=== PATIENT | female | born 1960 | race Hispanic/Latino ===

== ENCOUNTER 2016-11-13 13:48 | Emergency (ER) | payer OTHER ==
[2016-11-13] MEDS ORDERED: CATAPRES ONE (14:41)
[2016-11-13] MEDS ORDERED: CATAPRES PO ONE (14:46)
--- NOTE | 2016-11-13 15:18 | Cat Scan Report ---
CT HEAD WITHOUT CONTRAST: HISTORY: Head injury, hypertension. Serial contiguous axial images were obtained through the cranium. Intravenous contrast material was not administered. The ventricles are normal in size and appearance. There is no mass effect or midline shift. No areas of abnormally increased or decreased attenuation are seen. No mass lesion is seen. The mastoid air cells and visualized portions of the sinuses are normal. IMPRESSION: Cranial CT scan within normal limits.
--- NOTE | 2016-11-13 15:18 | XRay Report ---
LEFT HAND, 3 VIEWS: LEFT WRIST, 3 VIEWS: History: Swelling, pain after fall. There is diffuse soft tissue swelling. Borderline to mild osteopenia is evident. Subtle cortical irregularity is appreciated in the distal radial metaphysis which probably represents a nondisplaced fracture. Please correlate with the patient. The remaining bones in the left hand and wrist are intact. Minor degenerative changes. Impression: Probable nondisplaced distal radial fracture.
[2016-11-13] MEDS ORDERED: NORCO 5/325 PO ONE (16:17)
--- NOTE | 2016-11-13 19:07 | Emergency Department Report ---
ED Upper Extremity Inj HPI - General Chief Complaint: Extremity Injury, Upper Stated Complaint: HAND INJURY LT Time Seen by Provider: 11/13/16 18:46 Source: patient Mode of arrival: Ambulatory Limitations: No Limitations - History of Present Illness Complaint: Injury to:: left -: Gradual Other Extremity Injury: Wrist: Left Other Injuries: none Handedness: left Place: home Severity scale (0 -10): 5 Improves With: none Worsens With: movement of extremity Context: fall Associated Symptoms: denies other symptoms Treatments Prior to Arrival: other (none) - Related Data Home Medications Medication Instructions Recorded Confirmed Last Taken No Known Home Medications [No 11/13/16 11/13/16 Unknown Reported Home Medications] Allergies Allergy/AdvReac Type Severity Reaction Status Date / Time No Known Allergies Allergy Unverified 11/13/16 14:27 ED Review of Systems ROS: Stated complaint: HAND INJURY LT Other details as noted in HPI Comment: All other systems reviewed and negative Constitutional: no symptoms reported Musculoskeletal: joint swelling, arthralgia ED Past Medical Hx - Past Medical History Previous Medical History?: No - Surgical History Additional Surgical History: . TUBAL LIGATION - Social History Smoking Status: Former Smoker Substance Use Type: None - Medications Home Medications: Home Medications Medication Instructions Recorded Confirmed Last Taken Type No Known Home Medications [No 11/13/16 11/13/16 Unknown History Reported Home Medications] ED Physical Exam - General Limitations: No Limitations - Head Head exam: Present: atraumatic - Eye Eye exam: Present: normal appearance - ENT ENT exam: Present: normal exam - Neck Neck exam: Present: normal inspection - Respiratory Respiratory exam: Present: normal lung sounds bilaterally, respiratory distress - Cardiovascular Cardiovascular Exam: Present: regular rate, normal rhythm - GI/Abdominal GI/Abdominal exam: Present: soft, distended - Extremities Exam Extremities exam: Present: tenderness (left wrist) - Back Exam Back exam: Present: normal inspection - Neurological Exam Neurological exam: Present: alert, CN II-XII intact - Psychiatric Psychiatric exam: Present: normal affect - Skin Skin exam: Present: warm, dry ED Course Vital Signs 11/13/16 11/13/16 11/13/16 14:31 14:48 16:09 Temperature 98.7 F Pulse Rate 75 75 72 Respiratory 17 18 Rate Blood Pressure 222/114 222/114 Blood Pressure 202/108 [Right] O2 Sat by Pulse 100 100 Oximetry 11/13/16 11/13/16 16:22 16:58 Temperature Pulse Rate 72 Respiratory 17 Rate Blood Pressure Blood Pressure 190/102 [Right] O2 Sat by Pulse 100 Oximetry Critical care attestation.: If time is entered above; I have spent that time in minutes in the direct care of this critically ill patient, excluding procedure time. ED Disposition Clinical Impression: Left radial fracture Disposition: DC-01 TO HOME OR SELFCARE Is pt being admited?: No Does the pt Need Aspirin: No Condition: Stable Referrals: PRIMARY CAREMD [Primary Care Provider] - 3-5 Days RYAN WALDEN MD [Staff Physician] - 3-5 Days
[2016-11-13 20:38] VITALS: BP 158/93
== END 2016-11-13 20:25 | disposition home or self-care (01) ==
LOC: ED 13:48
DX: S52.592A Other fractures of lower end of left radius, initial encounter for closed fracture (principal); Z87.891 Personal history of nicotine dependence; W19.XXXA Unspecified fall, initial encounter; Y93.89 Activity, other specified; Y99.8 Other external cause status; Y92.009 Unspecified place in unspecified non-institutional (private) residence as the place of occurrence of the external cause
CPT/HCPCS: 70450

== ENCOUNTER 2020-05-04 12:32 | Emergency (ER) | payer OTHER ==
--- NOTE | 2020-05-04 13:20 | Event Note ---
ED Screening Note ED Screening Note: DIZZY FOR SEVERAL DAYS NO CP OR TIGHTNESS POS MILD COUGH SINUS PAIN AND PRESSURE RX NONE BUT DID TAKE HUSBANDS LISINOPRIL THIS AM NO HTN HAS NOT TAKEN BP PCP DORIE PSH NONE NO CIG/ETOH/DRUGS MOM HX CAD DAD DEC CAD This initial assessment/diagnostic orders/clinical plan/treatment(s) is/are subject to change based on patients health status, clinical progression and re- assessment by fellow clinical providers in the ED. Further treatment and workup at subsequent clinical providers discretion. Patient/guardian urged not to elope from the ED as their condition may be serious if not clinically assessed and managed. Initial orders include: RO ACS
--- NOTE | 2020-05-04 13:57 | XRay Report ---
CHEST 2 VIEWS INDICATION / CLINICAL INFORMATION: Lightheadedness/Dizziness. COMPARISON: None available. FINDINGS: SUPPORT DEVICES: None. HEART / MEDIASTINUM: No significant abnormality. LUNGS / PLEURA: No significant pulmonary or pleural abnormality. No pneumothorax. ADDITIONAL FINDINGS: No significant additional findings. IMPRESSION: 1. No acute findings. Signer Name: Deion Meyers MD Signed: 05/04/2020 1:53 PM Workstation Name: [id number]
[2020-05-04 14:07] LABS: Basophils % (Auto) 0.4 % (0.0-1.8); Eosinophils % (Auto) 0.1 % (0.0-4.3); Hematocrit 30.1 % (30.3-42.9); Hemoglobin 9.2 gm/dl (10.1-14.3); Lymphocytes # (Auto) 0.8 K/mm3 (1.2-5.4); Mean Corpuscular HGB Conc 31 % (30-34); Mean Corpuscular Volume 65 fl (79-97); Monocytes # (Auto) 0.3 K/mm3 (0.0-0.8); Monocytes % (Auto) 4.7 % (0.0-7.3); Platelet Count 308 K/mm3 (140-440); Red Blood Count 4.64 M/mm3 (3.65-5.03)
[2020-05-04 14:32] LABS: Alanine Aminotransferase 9 units/L (7-56); Albumin 3.9 g/dL (3.9-5); BUN/Creatinine Ratio 12; Blood Urea Nitrogen 19 mg/dL (7-17); Calcium 9.2 mg/dL (8.4-10.2); Hemolysis Index 1
--- NOTE | 2020-05-04 16:37 | Emergency Department Report ---
ED ENT HPI - General Chief complaint: Dizziness Stated complaint: BLOOD PRESSURE Time Seen by Provider: 05/04/20 13:18 Source: patient Mode of arrival: Ambulatory Limitations: No Limitations - History of Present Illness Initial comments: The patient was evaluated in the emergency department for symptoms described in the history of present illness. He/she was evaluated in the context of the global COVID-19 pandemic, which necessitated consideration that the patient might be at risk for infection with the virus that causes COVID-19. Institutional protocols and algorithms that pertain to the evaluation of patients at risk for COVID-19 are in a state of rapid change based on information released by regulatory bodies including the CDC and federal and state organizations. These policies and algorithms were followed during the patient's care in the emergency department. Please note that these policies, procedures and recommendations changed on a rapid basis. 60-year-old female presents to the emergency room complaining of sinus problems has been causing her dizziness for about 3 days. Patient states that today she felt a little flushed thought her blood pressure was elevated took her 's lisinopril. Patient states that she has been taking emqj-[id number]-wuteuth Sudafed. She states that she was having a headache but took Tylenol this morning and that has improved. Patient still complains of nasal congestion. Patient states she has a history of sinus, issues. Patient reports she takes no medications on a daily basis but will take intermittent Tylenol Aleve for pain. She takes ycjf-[id number]-[id number] supplement for energy. Eyes any fever no chills. She states she has a mild cough that she feels is postnasal. Patient does have a primary care provider Dr. Ryan. She denies any chest pain or shortness of breath no nausea no vomiting Onset/Timin -: days(s) Location: other (Nasal congestion) Severity: moderate Consistency: intermittent Improves with: other medication (Tylenol) - Related Data Previous Rx's Medication Instructions Recorded Last Taken Type HYDROcodone/APAP 5-325 [[place] 1 each PO Q6HR PRN #14 tablet 11/13/16 Unknown Rx 5/325] Cetirizine HCl [Zyrtec 10mg tab] 10 mg PO QDAY #30 tablet 05/04/20 Unknown Rx Fluticasone [Flonase] 1 spray NS QDAY #1 bottle 05/04/20 Unknown Rx Allergies Allergy/AdvReac Type Severity Reaction Status Date / Time No Known Allergies Allergy Verified 05/04/20 12:44 ED Dental HPI - General Chief complaint: Dizziness Stated complaint: BLOOD PRESSURE Time Seen by Provider: 05/04/20 13:18 Source: patient Mode of arrival: Ambulatory Limitations: No Limitations - Related Data Previous Rx's Medication Instructions Recorded Last Taken Type HYDROcodone/APAP 5-325 [[place] 1 each PO Q6HR PRN #14 tablet 11/13/16 Unknown Rx 5/325] Cetirizine HCl [Zyrtec 10mg tab] 10 mg PO QDAY #30 tablet 05/04/20 Unknown Rx Fluticasone [Flonase] 1 spray NS QDAY #1 bottle 05/04/20 Unknown Rx Allergies Allergy/AdvReac Type Severity Reaction Status Date / Time No Known Allergies Allergy Verified 05/04/20 12:44 ED Review of Systems ROS: Stated complaint: BLOOD PRESSURE Other details as noted in HPI Comment: All other systems reviewed and negative ED Past Medical Hx - Past Medical History Hx Hypertension: Yes Hx CVA: No Hx Diabetes: No Hx Renal Disease: No Hx Arthritis: No Hx Seizures: No Hx Asthma: No - Surgical History Hx Pacemaker: No Additional Surgical History: . TUBAL LIGATION - Social History Smoking Status: Never Smoker Substance Use Type: None - Medications Home Medications: Home Medications Medication Instructions Recorded Confirmed Last Taken Type HYDROcodone/APAP 5-325 [[place] 1 each PO Q6HR PRN #14 tablet 11/13/16 Unknown Rx 5/325] Cetirizine HCl [Zyrtec 10mg tab] 10 mg PO QDAY #30 tablet 05/04/20 Unknown Rx Fluticasone [Flonase] 1 spray NS QDAY #1 bottle 05/04/20 Unknown Rx ED Physical Exam - General Limitations: No Limitations General appearance: alert, in no apparent distress - Head Head exam: Present: atraumatic, normocephalic - Eye Eye exam: Present: normal appearance, PERRL, EOMI, other (Maxillary and frontal sinus tenderness) - ENT ENT exam: Present: mucous membranes moist - Expanded ENT Exam Expanded Mouth exam: Absent: drooling Throat exam: Positive: normal inspection. Negative: tonsillar erythema, tonsillomegaly, tonsillar exudate - Neck Neck exam: Present: normal inspection, full ROM. Absent: tenderness, lymphadenopathy - Respiratory Respiratory exam: Present: normal lung sounds bilaterally. Absent: respiratory distress - Cardiovascular Cardiovascular Exam: Present: regular rate, normal rhythm. Absent: systolic murmur, diastolic murmur, rubs, gallop - Neurological Exam Neurological exam: Present: alert, oriented X3, normal gait - Expanded Neurological Exam Expanded Cranial nerves: EOM's Intact: Normal, Gag Reflex: Normal, Tongue Deviation: Normal, Nystagmus: Normal, Facial Sensation: Normal, Facial Palsy with Forehead Movement: Normal, Facial Palsy without Forehead Movement: Normal Cerebellar function: Finger to Nose: Normal, Heel to S[place]: Normal, Romberg: Normal Upper motor neuron: Cal Neglect: Normal, Pronator Drift: Normal, Sensory Extinction: Normal Sensory exam: Upper Extremity Light Touch: Normal, Upper Extremity Pin Prick: Normal, Upper Extremity Temperature: Normal, UE 2 Point Discrimination: Normal, Lower Extremity Light Touch: Normal, Lower Extremity Pin Prick: Normal, Lower Extremity Temperature: Normal, LE 2 Point Discrimination: Normal Motor strength exam: RUE: 5, LUE: 5, RLE: 5, LLE: 5 Best Eye Response (Ed): (4) open spontaneously Best Motor Response (Phelps): (6) obeys commands Best Verbal Response (Ed): (5) oriented Phelps Total: 15 - Psychiatric Psychiatric exam: Present: normal affect, normal mood - Skin Skin exam: Present: warm, dry, intact, normal color. Absent: rash ED Course Vital Signs 05/04/20 12:45 Temperature 98.0 F Pulse Rate 86 Respiratory 18 Rate Blood Pressure 154/87 O2 Sat by Pulse 98 Oximetry ED Medical Decision Making - Lab Data Result diagrams: 05/04/20 13:42 05/04/20 13:42 - Medical Decision Making 60-year-old female presents to the emergency room complaining of sinus problems has been causing her dizziness for about 3 days. Patient states that today she felt a little flushed thought her blood pressure was elevated took her 's lisinopril. Patient states that she has been taking [id number]-[id number] Sudafed. She states that she was having a headache but took Tylenol this morning and that has improved. Patient still complains of nasal congestion. Patient states she has a history of sinus, issues. Patient reports she takes no medications on a daily basis but will take intermittent Tylenol Aleve for pain. She takes rwih-jeb-eyshfex supplement for energy. Eyes any fever no chills. She states she has a mild cough that she feels is postnasal. Patient does have a primary care provider Dr. Ryan. She denies any chest pain or shortness of breath no nausea no vomiting Chest x-ray is shows no acute abnormalities. Labs are stable patient does have a mild elevation of her creatinine of 1.6 no previous labs to refer to. Recommend patient to follow-up with her primary care provider. I recommend patient to use Flonase nasal spray stay away from the Sudafed as this can cause elevated blood pressure. Recommend Claritin or Zyrtec's. [place] pot. Tylenol or ibuprofen for pain Critical care attestation.: If time is entered above; I have spent that time in minutes in the direct care of this critically ill patient, excluding procedure time. ED Disposition Clinical Impression: Nasal sinus congestion, Headache Disposition: DC- TO HOME OR SELFCARE Is pt being admited?: No Does the pt Need Aspirin: No Condition: Stable Instructions: Postnasal Drip, Nonallergic Rhinitis Additional Instructions: Chest x-ray was negative for any acute findings. I recommend patient to use Flonase nasal spray stay away from the Sudafed as this can cause elevated blood pressure. Recommend Claritin or Zyrtec's. [place] pot. Tylenol or ibuprofen for pain. Recommend to follow-up with Dr. Ryan in the next 3 to 5 days. Prescriptions: Fluticasone [Flonase] 1 spray NS QDAY #1 bottle Cetirizine HCl [Zyrtec 10mg tab] 10 mg PO QDAY #30 tablet Referrals: PAT CASTILLO MD [Primary Care Provider] - 3-5 Days POLLY OSHEA MD [Referring] - 3-5 Days
[2020-05-04 17:02] VITALS: BP 155/85
== END 2020-05-04 17:02 | disposition home or self-care (01) ==
LOC: ED 12:32
DX: R51.9 Headache, unspecified (principal); R09.81 Nasal congestion; R42 Dizziness and giddiness; I10 Essential (primary) hypertension; Z98.51 Tubal ligation status; Z98.890 Other specified postprocedural states; Z79.899 Other long term (current) drug therapy
CPT/HCPCS: 36415; 71046; 80053; 84484; 85025; 93005